=== PATIENT | male | born 1970 | race Caucasian/White ===

== ENCOUNTER 2024-07-14 12:53 | Outpatient (AMB) | payer OTHER, SELFPAY ==
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
[2024-07-14 13:04] VITALS: BMI 32.7
== END 2024-07-14 13:16 | disposition home or self-care (01) ==
PROVIDERS: Visit Provider Orthopaedic Surgery
DX: M25.511 Pain in right shoulder (principal)
CPT/HCPCS: 99203; G2211

== ENCOUNTER 2024-08-17 08:13 | Outpatient (REF) | payer OTHER, SELFPAY ==
--- NOTE | ~2024-08-17 | MR_ITS ---
EXAMINATION: MR SHOULDER WITHOUT IV CONTRAST, RIGHT CLINICAL INFORMATION: Pain in right shoulder - M25.511. Decreased range of motion, pain down to arm, status post fall in summer. COMPARISON: None available TECHNIQUE: MRI of the shoulder without contrast was performed on a high-field scanner. FINDINGS: ROTATOR CUFF: Near-complete tear of the supraspinatus tendon as some posterior most fibers remain intact. The tear anteriorly involves the anterior leading edge insertion and extends posteriorly approximately 1.1 cm proximal to the tendon insertion at the posterior aspect. Maximal gap/retraction is present anteriorly, approximately 8 mm. Chronic underlying tendinopathy. Infraspinatus tendinosis with undersurface fraying at its anterior insertion. Subscapularis tendinosis with a small full-thickness tear at the superiormost insertion. No muscle atrophy or fatty infiltration. BICEPS: Normal. CORACOACROMIAL ARCH: The undersurface of the acromion is curved with mild subacromial spurring. Mild hypertrophic acromioclavicular osteoarthritis. LABRUM/CAPSULE: Irregular undersurface tearing of the superior labrum. GLENOHUMERAL JOINT/MARROW: Moderate joint effusion with diffuse synovitis. Degenerative cyst and spurring along the greater tuberosity. Small marginal osteophytes of the glenoid rim. MR/MR shoulder RT wo con IMPRESSION: 1. Near-complete tear of the supraspinatus tendon as described. 2. Infraspinatus tendinosis with undersurface fraying at its anterior insertion. 3. Subscapularis tendinosis with a small full-thickness tear at the superiormost insertion. 4. Mild subacromial spurring. Mild hypertrophic acromioclavicular osteoarthritis. 5. Irregular undersurface tearing of the superior labrum. 6. Mild glenohumeral osteoarthritis with a joint effusion and diffuse synovitis. Electronically signed by: Teodoro Olivarez MD 08/20/2024 03:37 PM EST
--- OUTSIDE RECORDS SUMMARY | 2024-08-17 08:17 | XMS_ITS | Continuity of Care Document ---
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 Role Phone Kimber HERNANDEZ, Nish Smalls Primary Care Physician Encounter [facility] Date(s): 07/14/24 - 08/13/24 [facility] [address] [place] [address]- Encounter Type: Triage Allergies, Adverse Reactions, Alerts No Known Allergies Immunizations Given and Recorded Vaccine Date Status Refusal Reason influenza virus vaccine, inactivated 06/07/23 Jarvis rded influenza virus vaccine, inactivated 06/30/21 Jarvis rded influenza virus vaccine, inactivated 05/25/20 Jarvis rded influenza virus vaccine, inactivated 1 08/08/17 Gi ana lilia influenza virus vaccine, inactivated 2 06/01/15 Re corded influenza virus vaccine, inactivated 3 06/02/14 Gi ana lilia influenza virus vaccine, inactivated 4 10/06/13 Gi ana lilia influenza virus vaccine, inactivated 5 05/23/12 Gi ana lilia [id number] bivalent booster vax 07/18/22 Recorded tetanus-diphtheria toxoids (Td) 6 03/20/22 Given tetanus-diphtheria toxoids (Td) 11/08/04 Recorded tetanus-diphtheria toxoids (Td) 7 10/31/04 Given SARS-CoV-2 (COVID-19) mRNA BNT-162b2 vac 06/30/21 Recorded SARS-CoV-2 (COVID-19) mRNA-1273 vaccine 10/11/20 R ecorded SARS-CoV-2 (COVID-19) mRNA-1273 vaccine 09/15/20 R ecorded tetanus/diphtheria/pertussis, acel(Tdap) 8 05/23/12 Given 1Result Comment: [08/08/2017] [facility] [id number] 2Result Comment: [06/02/2015] [facility] 3Result Comment: [08/05/2014] Received at work 4Admin Note: given at Work, August 2013 5Admin Note: VIS Given FLULAVAL 6Result Comment: [id number] 7Admin Note: HISTORY 8Admin Note: vis given Medications [facility] Adults 1 tablet, By Mouth, Daily, 0 Refills, Maintenance, 01/16/21 4:28:00 PM EDT, Partial fill upon patient request if the prescription is for a schedule II opioid drug. Start Date: 01/16/21 Status: Ordered Repeat number: 1 Fish Oil 1000 mg oral capsule 2 capsule = 2,000 mg, By Mouth, Daily, 0 Refills, Maintenance, 05/21/24 1:22:00 PM EDT, Partial fillupon patient request if the prescription is for a schedule II opioid drug. Start Date: 05/21/24 Status: Ordered Repeat number: 1 Glucosamine Chondroitin 2 capsules, By Mouth, Daily, 0 Refills, Maintenance, 05/21/24 1:23:00 PM EDT, Partial fill upon patient request if the prescription is for a schedule II opioid drug. Start Date: 05/21/24 Status: Ordered Repeat number: 1 sildenafil 100 mg oral tablet See Instructions, TAKE 1 TABLET BY MOUTH DAILY 1 HOUR BEFORE SEXUAL ACTIVITY, # 10 tablet, 5 Refills, 12/17/23 3:37:00 PM EDT, [facility] #[id number], 179, cm, 12/17/23 15:24:00 EDT, Height Start Date: 12/17/23 Status: Ordered Quantity: 10.0 Unit: tablet Repeat number: 6 tadalafil 20 mg oral tablet 1 tablet = 20 mg, By Mouth, Daily, PRN as needed, 1 hour before sexual activity, # 10 tablet, 5 Refills, Maintenance, 02/03/24 5:21:00 PM EDT, Tablet, [facility] #[id number], Partial fill upon patient request if the prescription is for a schedule II opioid drug., 179, cm, 12/17/23 15:24:00 EDT, Height Start Date: 02/03/24 Status: Ordered Quantity: 10.0 Unit: tablet Repeat number: 6 vardenafil 10 mg oral tablet 1 tablet = 10 mg, By Mouth, Daily, PRN erectile dysfunction, # 10 tablet, 5 Refills, Maintenance, 06/10/24 11:33:00 AM EDT, [facility] #[id number], Partial fill upon patient request if the prescription is for a schedule II opioid drug., 179.8, cm, 06/10/24 10:46:00 EDT, Height Start Date: 06/10/24 Status: Ordered Quantity: 10.0 Unit: tablet Repeat number: 6 Problem List Condition Confirmation Course Effective Dates Status Health Status Informant Family history of coronary artery disease Confirmed Active Hypercholesterolemia Confirmed Active Hypertension Confirmed Active Adult hypothyroidism Confirmed Active Severe obesity (BMI 35.0-39.9) with comorbidity Confirmed Active Tubular adenoma of colon 1 Confirmed 11/23/21 Active 1repeat screening colonoscopy in 2028 Social History Social History Type Response Smoking Status Former smoker entered on: 02/01/16 Sex Sex Representation Male (finding) Patient Care team information Care Team Personnel Name: Nish Quiroga MD Position: [facility] Physician - Primary Care Member Role: PCP Address: [address] [place] [id number] Telecom: Care Team Related Persons Name: TOD SMILEY Name: ROBSON CRISTINA Insurance Providers Guarantor name: YOGESH CRISTINA Health Plan Information #: 1 Payer: [id number] Member Number: NA Policy Number: NA Group Number: NA
== END 2024-08-17 08:14 | disposition home or self-care (01) ==
LOC: HO.MRI 08:13
PROVIDERS: PCP Family Medicine; Visit Provider Orthopaedic Surgery
DX: M25.511 Pain in right shoulder (principal)
CPT/HCPCS: 73221

== ENCOUNTER 2024-08-24 14:52 | Outpatient (AMB) | payer OTHER, SELFPAY ==
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
[2024-08-24 14:59] VITALS: BMI 32.7
== END 2024-08-24 15:32 | disposition home or self-care (01) ==
PROVIDERS: Visit Provider Orthopaedic Surgery
DX: M25.311 Other instability, right shoulder (principal)
CPT/HCPCS: 99213; G2211